=== PATIENT | male | born 1935 | race Caucasian/White ===

== ENCOUNTER 2017-01-09 15:26 | Inpatient (IN) ==
[2017-01-09] MEDS ORDERED: D5% in Water 1,000 ML IV PRN (18:11)
[2017-01-09] MEDS ORDERED: Dextrose Gel 15 GM PO PRN ×2 (18:11)
[2017-01-09] MEDS ORDERED: *HR* Dextrose 50 % in Water (Syg) 50 ML SYRINGE IVP PRN (18:11)
[2017-01-09 20:07] LABS: Basophils % 0.4 %; Eosinophils # 0.2 K/mcL (0.0-0.6); Eosinophils % 2.9 %; Hematocrit 30.6 % (37.5-50.1); Hemoglobin 10.5 g/dL (12.9-16.9); Immature Granulocytes % 3.3 % (0-4); Lymphocytes # 1.1 K/mcL (0.6-4.6); Lymphocytes % 12.9 %; Mean Corpuscular HGB Conc 34.3 g/dL (31.6-35.5); Mean Corpuscular Hemoglobin 31.5 pg (28.0-33.3); Mean Corpuscular Volume 91.9 fL (83.0-100.0); Mean Platelet Volume 11.1 fL (9.4-12.4); Monocytes % 11.6 %; Neutrophils # 5.6 K/mcL (1.6-8.9); Platelet Count 128 K/mcL (140-400); Red Blood Count 3.33 M/mcL (4.19-5.50); Red Cell Distribution Width 18.2 % (11.5-14.5); Segmented Neutrophils % 68.9 %
[2017-01-09] MEDS: MetroNIDAZOLE 500 MG TABLET PO SCH (20:50)
[2017-01-09] MEDS: Insulin LISPRO 300 UNITS/3 ML VIAL SQ SCH (21:00)
[2017-01-10] MEDS ORDERED: Levothyroxine 25 MCG TABLET PO SCH (08:00)
[2017-01-10] MEDS: Cholecalciferol (D-3) 1,000 UNIT TABLET PO SCH (08:48)
[2017-01-10] MEDS: MetroNIDAZOLE 500 MG TABLET PO SCH ×3 (08:48→21:40)
[2017-01-10] MEDS: Folic Acid 1 MG TABLET PO SCH (08:48)
[2017-01-10] MEDS: *HR* GlipiZIDE 5 MG TABLET PO SCH (08:53)
[2017-01-10] MEDS: Insulin LISPRO 300 UNITS/3 ML VIAL SQ SCH ×4 (08:55→21:41)
--- NOTE | 2017-01-10 11:52 | Internal Med History&Physical ---
Date of Encounter: 01/10/17 Time of Encounter: 11:15 Assessment and Plan (1) Cholecystitis, acute with cholelithiasis Current visit: No Status: Acute Status post laparoscopic cholecystectomy with choledocholithiasis removal by ERCP. Follow-up as per surgeon. Qualifiers: Cholelithiasis location: gallbladder Biliary obstruction: without biliary obstruction Qualified Code(s): K80.00 - Calculus of gallbladder with acute cholecystitis without obstruction (2) Systolic CHF Current visit: No Status: Acute Renal function has improved. We will restart diuretics and add Imdur and Lanoxin. Qualifiers: Congestive heart failure chronicity: unspecified congestive heart failure chronicity Qualified Code(s): I50.20 - Unspecified systolic (congestive) heart failure (3) Hypophosphatemia Current visit: Yes Status: Acute Phosphorus level was 1.9 on 01/08/2017. We will recheck in a.m. (4) Anemia Current visit: No Status: Chronic Suspect due to chronic kidney disease. We will order anemia testing in a.m. Qualifiers: Anemia type: unspecified type Qualified Code(s): D64.9 - Anemia, unspecified (5) Hypothyroidism Current visit: No Status: Chronic TSH was slightly elevated at 5.16 through 01/01/2017. We will increase Synthroid dose. Qualifiers: Hypothyroidism type: unspecified Qualified Code(s): E03.9 - Hypothyroidism , unspecified (6) Hypomagnesemia Current visit: No Status: Resolved Magnesium level had normalized to 1.6 on January 2017. We will continue to monitor periodically. (7) Chronic kidney disease, stage IV (severe) Current visit: No Status: Acute Estimated GFR had risen to 29 on 01/09/2017 with creatinine 2.17. Continue to monitor renal indices. (8) Hypertension Current visit: No Status: Acute Blood pressure is acceptable without antihypertensive medications. Qualifiers: Hypertension type: essential hypertension Qualified Code(s): I10 - Essential (primary) hypertension (9) DM type 2 (diabetes mellitus, type 2) Current visit: Yes Status: Chronic Hemoglobin A1c was 5.6% on 11/21/2016. Continue Glucotrol and do Accu-Cheks with SSI. Qualifiers: Diabetes mellitus complication status: with kidney complications Diabetes mellitus complication detail: with chronic kidney disease Diabetes mellitus station mechanic helper insulin use: without station mechanic helper use Chronic kidney disease stage: stage 4 (severe) Qualified Code(s): E11.22 - Type 2 diabetes mellitus with diabetic chronic kidney disease; N18.4 - Chronic kidney disease, stage 4 (severe ) Internal Medicine - H&P: HPI Chief complaint: Postop laparoscopic cholecystectomy, chronic kidney disease Admitted From: Hospital to Hospital Transfer Plans for Post Hospital Care: Home History of present illness: Mr. Martin is a 81 year old male who was hospitalized at [facility] January 02- for acute cholecystitis requiring cholecystectomy. The laparoscopic procedure was difficult and CBD stones were found requiring ERCP 01/05/2017 with biliary sphincterotomy and balloon extraction. A biliary stent was placed in the CBD. MILKA drain was placed. He was discharged after further stabilization to [facility] bed for rehabilitation therapy prior to returning home. He denies disorders of his liver or exocrine pancreas otherwise. Past Med Surg Social Fam HX - Past Medical History Medical history: coronary artery disease, CVA, diabetes, GERD, glaucoma, hyperlipidemia, hypertension, renal disease Psychiatric history: no psych history - Past Surgical History Surgical History: carotid endarterectomy, coronary bypass (CABG), pacemaker/AICD , other - Social History Smoking Status: Former smoker Smokeless Tobacco Status: No Alcohol use: none Drug use: none - Family History Father Hx Family Endocrine Disorder: Yes (diabetes) Mother Hx Family Cancer: Yes (brain) Internal Medicine - H&P: Meds Clopidogrel [Plavix] 75 mg PO DAILY 01/01/17 [History] GlipiZIDE [Glucotrol] 2.5 mg PO 3XW 01/01/17 [History] Levothyroxine [Synthroid] 25 mcg PO DAILY 01/01/17 [History] Omeprazole 20 mg PO DAILY 01/01/17 [History] Potassium Chloride [Klor-Con 10] 10 meq PO BID 01/01/17 [History] Simvastatin [Zocor] 20 mg PO DAILY 01/01/17 [History] Tamsulosin HCl [Flomax] 0.4 mg PO DAILY 01/01/17 [History] Cholecalciferol (Vitamin D3) [Vitamin D3] 5,000 unit PO DAILY 01/02/17 [History] Folic Acid 1 mg PO DAILY 01/02/17 [History] Amoxicillin/Clavulanate [Augmentin] 875 mg PO BIDWM #9 tablet 01/08/17 [Rx] MetroNIDAZOLE [Flagyl] 500 mg PO TID #13 tablet 01/08/17 [Rx] Allergies No Known Allergies Allergy (Verified 01/02/17 08:41) All Systems PM: A 10-system review of systems was performed and is negative for pertinent findings except as documented above in the HPI. Review of systems: General: He states his weight has fluctuated depending on fluid retention Cardiovascular: He has history of hypertension. He has known ASHD status post 2 vessel CABG approximately 2009. He has chronic systolic congestive heart failure with echocardiogram 07/26/2016 showing LVEF of 30-35% with mild concentric LVH. The interventricular septum and posterior wall thickness measurements were 1.42 and 1.01 cm respectively. There was left atrial enlargement 4.3 cm. He has had ICD- pacemaker placed with history of sick sinus syndrome. Has right carotid stenosis. He denies DVT or pulmonary embolus. He had a Regadenoson EST 06/13/2014 which showed perfusion imaging negative for ischemia. Respiratory: He smoked from age [age] but denies chronic lung disease. GI: Per history of present illness : He has chronic kidney disease and follows with a infrastructure manager. He has BPH. Neurologic: He claims he had a mini stroke at the time of his CABG surgery. He had brief vision loss in his left visual field but states he has had recovery. He denies seizures. Endocrine: He was diagnosed with DM 2 approximately 2000. He has hypothyroidism denies hyperlipidemia Hematology/oncology: He has history of anemia but denies internal malignancies. Psychiatric: He denies anxiety depression or other mental health issues Musculoskeletal: He denies significant arthritis gout or other bone joint or muscle disorders. - Constitutional Vitals: Temp Pulse Resp BP Pulse Ox 97.9 F 75 16 112/64 97 01/10/17 07:41 01/10/17 07:41 01/10/17 07:41 01/10/17 07:41 01/10/17 07:41 Exam: Gen.: He is a well-developed well-nourished male sitting in a chair who appears in no acute distress at present time. HEENT: Head is atraumatic and normocephalic. Eyes: EOMI. There is no scleral icterus. Mouth: Mucosa is moist. Neck: Supple and nontender. There is no thyromegaly or adenopathy noted Line heart: Regular with occasional ectopic beat. No murmurs are heard Lungs: No wheezes or crackles are heard Abdomen: He has multiple abdominal wall surgical incisions consistent with recent laparoscopic cholecystectomy. No wound infection is obvious. The abdomen is soft and nontender. Extremities: He has 3-4+ edema of his dorsum of the feet and lower anterior shins bilaterally. Dorsalis pedis and posterior tibial pulses are nonpalpable because of the edema. His feet are warm to touch. He has pigmentation changes with with multiple bruises of various stages on his arms. 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 Neurologic: Mental status: He is talkative and a fair to good historian. Cranial nerves: Smile is symmetric. Forehead wrinkles bilaterally. Tongue protrudes midline. EOMI. Motor: There is no pronator drift. Cerebellar: Finger to nose is intact bilaterally. Skin: Warm and dry Internal Med - H&P Results - Labs CBC & Chem 7: 01/09/17 19:00 Labs: Short CBC 01/09/17 Range/Units 19:00 WBC 8.2 (4.3-11.1) K/mcL Hgb 10.5 L (12.9-16.9) g/dL Hct 30.6 L (37.5-50.1) % Plt Count 128 L (140-400) K/mcL Neutrophils # 5.6 (1.6-8.9) K/mcL
[2017-01-10] MEDS: *HR* Digoxin 0.125 MG TABLET PO SCH (15:59)
[2017-01-10] MEDS: Bumetanide 1 MG TABLET PO SCH (15:59)
[2017-01-10] MEDS: Isosorbide MONOnitrate (24 HR) 30 MG TAB.ER.24H PO SCH (16:00)
[2017-01-10] MEDS: *HR* Heparin 5,000 UNIT/ML VIAL SQ SCH ×2 (17:12→21:38)
[2017-01-10] MEDS ORDERED: Oseltamivir Phosphate 30 MG CAPSULE PO SCH ×2 (21:00)
[2017-01-11 06:28] LABS: Basophils % 0.3 %; Eosinophils # 0.3 K/mcL (0.0-0.6); Eosinophils % 3.3 %; Hematocrit 29.8 % (37.5-50.1); Hemoglobin 10.2 g/dL (12.9-16.9); Immature Granulocytes % 1.8 % (0-4); Lymphocytes # 0.8 K/mcL (0.6-4.6); Lymphocytes % 10.9 %; Mean Corpuscular HGB Conc 34.2 g/dL (31.6-35.5); Mean Corpuscular Hemoglobin 31.7 pg (28.0-33.3); Mean Corpuscular Volume 92.5 fL (83.0-100.0); Mean Platelet Volume 11.2 fL (9.4-12.4); Monocytes # 0.7 K/mcL (0.0-1.3); Monocytes % 9.6 %; Neutrophils # 5.7 K/mcL (1.6-8.9); Platelet Count 145 K/mcL (140-400); Red Blood Count 3.22 M/mcL (4.19-5.50); Red Cell Distribution Width 18.7 % (11.5-14.5); Segmented Neutrophils % 74.1 %
[2017-01-11 06:44] LABS: Calcium 8.4 mg/dL (8.6-10.8); Potassium 4.1 mEq/L (3.5-4.5)
[2017-01-11] MEDS: Levothyroxine 25 MCG TABLET PO SCH (07:31)
[2017-01-11] MEDS: *HR* Heparin 5,000 UNIT/ML VIAL SQ SCH ×2 (07:31→20:41)
[2017-01-11] MEDS: Isosorbide MONOnitrate (24 HR) 30 MG TAB.ER.24H PO SCH (09:29)
[2017-01-11] MEDS: Folic Acid 1 MG TABLET PO SCH (09:29)
[2017-01-11] MEDS: Cholecalciferol (D-3) 1,000 UNIT TABLET PO SCH (09:29)
[2017-01-11] MEDS: MetroNIDAZOLE 500 MG TABLET PO SCH ×3 (09:29→20:42)
[2017-01-11] MEDS: *HR* Digoxin 0.125 MG TABLET PO SCH (09:29)
[2017-01-11] MEDS: Bumetanide 1 MG TABLET PO SCH (09:29)
[2017-01-11] MEDS: Insulin LISPRO 300 UNITS/3 ML VIAL SQ SCH ×4 (10:30→20:42)
[2017-01-11 16:08] LABS: Folate 15.7 ng/mL (7.0-31.4)
[2017-01-12 05:17] LABS: Basophils % 0.5 %; Eosinophils # 0.2 K/mcL (0.0-0.6); Eosinophils % 3.5 %; Hematocrit 30.5 % (37.5-50.1); Hemoglobin 10.4 g/dL (12.9-16.9); Lymphocytes # 0.8 K/mcL (0.6-4.6); Lymphocytes % 12.8 %; Mean Corpuscular HGB Conc 34.1 g/dL (31.6-35.5); Mean Corpuscular Hemoglobin 31.5 pg (28.0-33.3); Mean Corpuscular Volume 92.4 fL (83.0-100.0); Mean Platelet Volume 11.2 fL (9.4-12.4); Monocytes # 0.6 K/mcL (0.0-1.3); Neutrophils # 4.7 K/mcL (1.6-8.9); Platelet Count 145 K/mcL (140-400); Red Cell Distribution Width 18.9 % (11.5-14.5); Segmented Neutrophils % 72.2 %
[2017-01-12] MEDS: Levothyroxine 25 MCG TABLET PO SCH (06:56)
[2017-01-12] MEDS: *HR* Heparin 5,000 UNIT/ML VIAL SQ SCH ×2 (06:56→18:36)
[2017-01-12] MEDS: MetroNIDAZOLE 500 MG TABLET PO SCH ×3 (08:39→20:52)
[2017-01-12] MEDS: Isosorbide MONOnitrate (24 HR) 30 MG TAB.ER.24H PO SCH (08:40)
[2017-01-12] MEDS: Folic Acid 1 MG TABLET PO SCH (08:40)
[2017-01-12] MEDS: Bumetanide 1 MG TABLET PO SCH (08:40)
[2017-01-12] MEDS: *HR* Digoxin 0.125 MG TABLET PO SCH (08:40)
[2017-01-12] MEDS: Cholecalciferol (D-3) 1,000 UNIT TABLET PO SCH (08:40)
[2017-01-12] MEDS: Insulin LISPRO 300 UNITS/3 ML VIAL SQ SCH ×4 (08:42→20:54)
--- NOTE | 2017-01-12 14:47 | Internal Med Progress Note ---
Date of Encounter: 01/12/17 Time of Encounter: 14:35 - Assessment and plan (1) Cholecystitis, acute with cholelithiasis Current Visit: No Status: Acute Assessment and plan: January 12. Status post laparoscopic cholecystectomy with choledocholithiasis removal by ERCP. Follow-up as per surgeon. Qualifiers: Cholelithiasis location: gallbladder Biliary obstruction: without biliary obstruction Qualified Code(s): K80.00 - Calculus of gallbladder with acute cholecystitis without obstruction (2) Systolic CHF Current Visit: No Status: Acute Assessment and plan: January 12. Continue Bumex, Imdur, and Lanoxin Qualifiers: Congestive heart failure chronicity: unspecified congestive heart failure chronicity Qualified Code(s): I50.20 - Unspecified systolic (congestive) heart failure (3) Hypophosphatemia Current Visit: Yes Status: Acute Assessment and plan: January 12. We will recheck labs in a.m. (4) Anemia Current Visit: No Status: Chronic Assessment and plan: January 12. Anemia testing 01/11/2017 showed no factor deficiency. Qualifiers: Anemia type: unspecified type Qualified Code(s): D64.9 - Anemia, unspecified (5) Hypothyroidism Current Visit: No Status: Chronic Assessment and plan: January 12. TSH was slightly elevated at 5.16 on 01/01/2017. Continue higher dose Synthroid Qualifiers: Hypothyroidism type: unspecified Qualified Code(s): E03.9 - Hypothyroidism , unspecified (6) Hypomagnesemia Current Visit: No Status: Acute Assessment and plan: January 12. We will recheck labs in a.m. (7) Chronic kidney disease, stage IV (severe) Current Visit: No Status: Acute Assessment and plan: January 12. Continue to monitor renal indices. (8) Hypertension Current Visit: No Status: Acute Assessment and plan: January 12. Continue to observe off medication Qualifiers: Hypertension type: essential hypertension Qualified Code(s): I10 - Essential (primary) hypertension (9) DM type 2 (diabetes mellitus, type 2) Current Visit: Yes Status: Chronic Qualifiers: Diabetes mellitus complication status: with kidney complications Diabetes mellitus complication detail: with chronic kidney disease Diabetes mellitus film printer insulin use: without film printer use Chronic kidney disease stage: stage 4 (severe) Qualified Code(s): E11.22 - Type 2 diabetes mellitus with diabetic chronic kidney disease; N18.4 - Chronic kidney disease, stage 4 (severe ) - Subjective Interval history: January 12. He has no new complaints and states he is feeling better. - Constitutional Vitals: Temp Pulse Resp BP Pulse Ox 97.8 F 73 16 123/69 98 01/12/17 06:35 01/12/17 06:35 01/12/17 06:35 01/12/17 06:35 01/12/17 09:00 Exam: He is resting comfortably in bed. His heart is regular with occasional ectopic beat. Lungs are clear anteriorly. Extremities show slightly decrease in the edema. Reviewed his medications and lab results. Internal Medicine: Result - Labs CBC & Chem 7: 01/12/17 04:10 01/11/17 05:43 Labs: Short CBC 01/12/17 Range/Units 04:10 WBC 6.6 (4.3-11.1) K/mcL Hgb 10.4 L (12.9-16.9) g/dL Hct 30.5 L (37.5-50.1) % Plt Count 145 (140-400) K/mcL Neutrophils # 4.7 (1.6-8.9) K/mcL BMP 01/11/17 05:43 Sodium 137 Potassium 4.1 Chloride 108 Carbon Dioxide 21 BUN 35 H Creatinine 2.05 H Glucose 118 H Calcium 8.4 L - VTE Documentation of Mechanical Device: Graduated compression elastic hosiery Consult Discharge Plan - Plan Referrals: NO,PCP [Primary Care Provider] - 1 week
[2017-01-13 05:41] LABS: Basophils % 0.2 %; Eosinophils # 0.1 K/mcL (0.0-0.6); Eosinophils % 2.4 %; Hematocrit 28.8 % (37.5-50.1); Hemoglobin 9.8 g/dL (12.9-16.9); Immature Granulocytes % 1.7 % (0-4); Lymphocytes # 0.7 K/mcL (0.6-4.6); Lymphocytes % 12.1 %; Mean Corpuscular Hemoglobin 31.4 pg (28.0-33.3); Mean Corpuscular Volume 92.3 fL (83.0-100.0); Mean Platelet Volume 11.1 fL (9.4-12.4); Monocytes # 0.5 K/mcL (0.0-1.3); Monocytes % 9.2 %; Neutrophils # 4.4 K/mcL (1.6-8.9); Platelet Count 142 K/mcL (140-400); Red Blood Count 3.12 M/mcL (4.19-5.50); Red Cell Distribution Width 19.7 % (11.5-14.5); Segmented Neutrophils % 74.4 %
[2017-01-13] MEDS: Levothyroxine 25 MCG TABLET PO SCH (05:45)
[2017-01-13] MEDS: *HR* Heparin 5,000 UNIT/ML VIAL SQ SCH ×2 (05:46→18:59)
[2017-01-13 06:05] LABS: Calcium 8.5 mg/dL (8.6-10.8); Magnesium 1.2 mg/dL (1.6-2.6); Phosphorous 2.5 mg/dL (2.3-4.7); Potassium 4.3 mEq/L (3.5-4.5)
[2017-01-13] MEDS: Cholecalciferol (D-3) 1,000 UNIT TABLET PO SCH (08:00)
[2017-01-13] MEDS: Isosorbide MONOnitrate (24 HR) 30 MG TAB.ER.24H PO SCH (08:00)
[2017-01-13] MEDS: MetroNIDAZOLE 500 MG TABLET PO SCH ×3 (08:00→21:10)
[2017-01-13] MEDS: *HR* Digoxin 0.125 MG TABLET PO SCH (08:01)
[2017-01-13] MEDS: Insulin LISPRO 300 UNITS/3 ML VIAL SQ SCH ×4 (08:01→21:12)
[2017-01-13] MEDS: Bumetanide 1 MG TABLET PO SCH (08:01)
[2017-01-13] MEDS: *HR* GlipiZIDE 5 MG TABLET PO SCH (12:46)
[2017-01-14] MEDS: *HR* Heparin 5,000 UNIT/ML VIAL SQ SCH ×2 (05:43→20:48)
[2017-01-14] MEDS: Levothyroxine 25 MCG TABLET PO SCH (05:43)
[2017-01-14] MEDS: Bumetanide 1 MG TABLET PO SCH (08:43)
[2017-01-14] MEDS: Isosorbide MONOnitrate (24 HR) 30 MG TAB.ER.24H PO SCH (08:45)
[2017-01-14] MEDS: Cholecalciferol (D-3) 1,000 UNIT TABLET PO SCH (08:45)
[2017-01-14] MEDS: *HR* Digoxin 0.125 MG TABLET PO SCH (08:45)
[2017-01-14] MEDS: MetroNIDAZOLE 500 MG TABLET PO SCH ×3 (08:46→20:45)
[2017-01-14] MEDS: Insulin LISPRO 300 UNITS/3 ML VIAL SQ SCH ×4 (08:46→20:45)
--- NOTE | 2017-01-14 11:34 | Internal Med Progress Note ---
Date of Encounter: 01/14/17 Time of Encounter: 11:25 - Assessment and plan (1) Cholecystitis, acute with cholelithiasis Current Visit: No Status: Acute Assessment and plan: January 12. Status post laparoscopic cholecystectomy with choledocholithiasis removal by ERCP. Follow-up as per surgeon. January 14. He denies abdominal discomfort. Continue present treatment Qualifiers: Cholelithiasis location: gallbladder Biliary obstruction: without biliary obstruction Qualified Code(s): K80.00 - Calculus of gallbladder with acute cholecystitis without obstruction (2) Systolic CHF Current Visit: No Status: Acute Assessment and plan: January 12. Continue Bumex, Imdur, and Lanoxin January 14. BNP peptide has improved to 1227. Increase Bumex and continue to monitor labs. Qualifiers: Congestive heart failure chronicity: unspecified congestive heart failure chronicity Qualified Code(s): I50.20 - Unspecified systolic (congestive) heart failure (3) Hypophosphatemia Current Visit: Yes Status: Acute Assessment and plan: January 12. We will recheck labs in a.m. January 14. Phosphorus level was normal at 2.5 yesterday. (4) Anemia Current Visit: No Status: Chronic Assessment and plan: January 12. Anemia testing 01/11/2017 showed no factor deficiency. January 14. Hemoglobin decreased slightly to 9.8 yesterday. Qualifiers: Anemia type: unspecified type Qualified Code(s): D64.9 - Anemia, unspecified (5) Hypothyroidism Current Visit: No Status: Chronic Assessment and plan: January 12. TSH was slightly elevated at 5.16 on 01/01/2017. Continue higher dose Synthroid Qualifiers: Hypothyroidism type: unspecified Qualified Code(s): E03.9 - Hypothyroidism , unspecified (6) Hypomagnesemia Current Visit: No Status: Acute Assessment and plan: January 12. We will recheck labs in a.m. January 14. Magnesium level returned low at 1.2. We will start magnesium oxide. (7) Chronic kidney disease, stage IV (severe) Current Visit: No Status: Acute Assessment and plan: January 12. Continue to monitor renal indices. (8) Hypertension Current Visit: No Status: Acute Assessment and plan: January 12. Continue to observe off medication Qualifiers: Hypertension type: essential hypertension Qualified Code(s): I10 - Essential (primary) hypertension (9) DM type 2 (diabetes mellitus, type 2) Current Visit: Yes Status: Chronic Assessment and plan: January 14. Continue Glucotrol and monitor Accu-Cheks Qualifiers: Diabetes mellitus complication status: with kidney complications Diabetes mellitus complication detail: with chronic kidney disease Diabetes mellitus termite control technician insulin use: without longterm use Chronic kidney disease stage: stage 4 (severe) Qualified Code(s): E11.22 - Type 2 diabetes mellitus with diabetic chronic kidney disease; N18.4 - Chronic kidney disease, stage 4 (severe ) - Subjective Interval history: January 12. He has no new complaints and states he is feeling better. January 14. He has no new complaints and feels improved. He thinks he is making good progress in therapy - Constitutional Vitals: Temp Pulse Resp BP Pulse Ox 97.4 F L 73 18 118/66 97 01/14/17 06:31 01/14/17 10:51 01/14/17 10:51 01/14/17 10:51 01/14/17 10:51 Exam: He is sitting in a chair resting comfortably. His heart is irregular. Lungs are clear. Extremities show 2-3+ edema in his medications and lab results. Internal Medicine: Result - Labs CBC & Chem 7: 01/13/17 04:33 01/13/17 04:33 - VTE Documentation of Mechanical Device: Graduated compression elastic hosiery Consult Discharge Plan - Plan Referrals: NO,PCP [Primary Care Provider] - 1 week
[2017-01-14] MEDS: Magnesium Oxide 400 MG TABLET PO SCH ×2 (12:51→20:45)
[2017-01-15 05:32] LABS: Basophils % 0.2 %; Eosinophils # 0.1 K/mcL (0.0-0.6); Eosinophils % 2.4 %; Hematocrit 29.1 % (37.5-50.1); Immature Granulocytes % 1.2 % (0-4); Lymphocytes # 0.9 K/mcL (0.6-4.6); Lymphocytes % 14.7 %; Mean Corpuscular HGB Conc 34.4 g/dL (31.6-35.5); Mean Corpuscular Hemoglobin 31.8 pg (28.0-33.3); Mean Corpuscular Volume 92.7 fL (83.0-100.0); Mean Platelet Volume 10.8 fL (9.4-12.4); Monocytes # 0.6 K/mcL (0.0-1.3); Monocytes % 9.6 %; Neutrophils # 4.3 K/mcL (1.6-8.9); Platelet Count 147 K/mcL (140-400); Red Blood Count 3.14 M/mcL (4.19-5.50); Red Cell Distribution Width 20.4 % (11.5-14.5); Segmented Neutrophils % 71.9 %
[2017-01-15 05:47] LABS: Calcium 8.6 mg/dL (8.6-10.8); Potassium 3.9 mEq/L (3.5-4.5)
[2017-01-15] MEDS: *HR* Heparin 5,000 UNIT/ML VIAL SQ SCH ×2 (06:37→20:17)
[2017-01-15] MEDS: Levothyroxine 25 MCG TABLET PO SCH (06:37)
[2017-01-15] MEDS: Insulin LISPRO 300 UNITS/3 ML VIAL SQ SCH ×4 (07:44→20:49)
[2017-01-15] MEDS: Cholecalciferol (D-3) 1,000 UNIT TABLET PO SCH (08:29)
[2017-01-15] MEDS: *HR* Digoxin 0.125 MG TABLET PO SCH (08:29)
[2017-01-15] MEDS: Isosorbide MONOnitrate (24 HR) 30 MG TAB.ER.24H PO SCH (08:29)
[2017-01-15] MEDS: Magnesium Oxide 400 MG TABLET PO SCH ×2 (08:29→20:42)
[2017-01-15] MEDS: MetroNIDAZOLE 500 MG TABLET PO SCH ×3 (08:29→20:42)
[2017-01-15] MEDS: Bumetanide 1 MG TABLET PO SCH (08:30)
[2017-01-15] MEDS: *HR* GlipiZIDE 5 MG TABLET PO SCH (08:32)
[2017-01-16] MEDS: Levothyroxine 25 MCG TABLET PO SCH (06:21)
[2017-01-16] MEDS: *HR* Heparin 5,000 UNIT/ML VIAL SQ SCH ×2 (06:22→21:06)
[2017-01-16 08:18] LABS: Potassium 3.9 mEq/L (3.5-4.5)
[2017-01-16] MEDS: Insulin LISPRO 300 UNITS/3 ML VIAL SQ SCH ×4 (08:40→21:10)
[2017-01-16] MEDS: Isosorbide MONOnitrate (24 HR) 30 MG TAB.ER.24H PO SCH (08:46)
[2017-01-16] MEDS: Cholecalciferol (D-3) 1,000 UNIT TABLET PO SCH (08:46)
[2017-01-16] MEDS: Magnesium Oxide 400 MG TABLET PO SCH ×3 (08:46→21:06)
[2017-01-16] MEDS: *HR* Digoxin 0.125 MG TABLET PO SCH (08:46)
[2017-01-16] MEDS: MetroNIDAZOLE 500 MG TABLET PO SCH ×3 (08:46→21:05)
[2017-01-16] MEDS: Bumetanide 1 MG TABLET PO SCH (11:53)
[2017-01-17] MEDS: *HR* Heparin 5,000 UNIT/ML VIAL SQ SCH (06:44)
[2017-01-17 07:20] VITALS: BP 110/65
[2017-01-17] MEDS: Levothyroxine 25 MCG TABLET PO SCH (07:58)
[2017-01-17] MEDS: Bumetanide 1 MG TABLET PO SCH (09:40)
[2017-01-17] MEDS: Cholecalciferol (D-3) 1,000 UNIT TABLET PO SCH (09:40)
[2017-01-17] MEDS: MetroNIDAZOLE 500 MG TABLET PO SCH (09:41)
[2017-01-17] MEDS: Isosorbide MONOnitrate (24 HR) 30 MG TAB.ER.24H PO SCH (09:41)
[2017-01-17] MEDS: Magnesium Oxide 400 MG TABLET PO SCH (09:42)
[2017-01-17] MEDS: *HR* Digoxin 0.125 MG TABLET PO SCH (09:42)
[2017-01-17] MEDS: Insulin LISPRO 300 UNITS/3 ML VIAL SQ SCH (09:45)
--- NOTE | 2017-01-17 09:48 | Discharge Summary ---
Date of Encounter: 01/17/17 Time of Encounter: 09:30 - Discharge Diagnosis (1) Cholecystitis, acute with cholelithiasis Priority: Primary Status: Acute Qualifiers: Cholelithiasis location: gallbladder Biliary obstruction: without biliary obstruction Qualified Code(s): K80.00 - Calculus of gallbladder with acute cholecystitis without obstruction (2) Systolic CHF Priority: Secondary Status: Chronic Qualifiers: Congestive heart failure chronicity: unspecified congestive heart failure chronicity Qualified Code(s): I50.20 - Unspecified systolic (congestive) heart failure (3) Hypophosphatemia Priority: Secondary Status: Resolved (4) Anemia Priority: Secondary Status: Chronic Qualifiers: Anemia type: unspecified type Qualified Code(s): D64.9 - Anemia, unspecified (5) Hypothyroidism Priority: Secondary Status: Chronic Qualifiers: Hypothyroidism type: unspecified Qualified Code(s): E03.9 - Hypothyroidism , unspecified (6) Hypomagnesemia Priority: Secondary Status: Acute (7) Chronic kidney disease, stage IV (severe) Priority: Secondary Status: Chronic (8) Hypertension Priority: Secondary Status: Chronic Qualifiers: Hypertension type: essential hypertension Qualified Code(s): I10 - Essential (primary) hypertension (9) DM type 2 (diabetes mellitus, type 2) Priority: Secondary Status: Chronic Qualifiers: Diabetes mellitus complication status: with kidney complications Diabetes mellitus complication detail: with chronic kidney disease Diabetes mellitus terminal operations manager insulin use: without shelter use Chronic kidney disease stage: stage 4 (severe) Qualified Code(s): E11.22 - Type 2 diabetes mellitus with diabetic chronic kidney disease; N18.4 - Chronic kidney disease, stage 4 (severe ) - Discharge Medications Prescriptions: Bumetanide [Bumex] 2 mg PO DAILY #60 tablet Digoxin [Lanoxin] 0.125 mg PO DAILY #30 tablet Isosorbide MONOnitrate (24 HR) [Imdur] 30 mg PO DAILY #30 tab.er.24h Magnesium Oxide [Mag-Ox] 400 mg PO DAILY #7 tablet Home Medications: Clopidogrel [Plavix] 75 mg PO DAILY 01/01/17 [History] GlipiZIDE [Glucotrol] 2.5 mg PO 3XW 01/01/17 [History] Omeprazole 20 mg PO DAILY 01/01/17 [History] Potassium Chloride [Klor-Con 10] 10 meq PO BID 01/01/17 [History] Simvastatin [Zocor] 20 mg PO DAILY 01/01/17 [History] Tamsulosin HCl [Flomax] 0.4 mg PO DAILY 01/01/17 [History] Folic Acid 1 mg PO DAILY 01/02/17 [History] Metoprolol XL (24 HR) Succ [Toprol Xl] 25 mg PO DAILY 01/15/17 [History] Bumetanide [Bumex] 2 mg PO DAILY #60 tablet 01/17/17 [Rx] Cholecalciferol (D-3) [Vitamin D] 1,000 unit PO DAILY tablet 01/17/17 [Rx] Digoxin [Lanoxin] 0.125 mg PO DAILY #30 tablet 01/17/17 [Rx] Isosorbide MONOnitrate (24 HR) [Imdur] 30 mg PO DAILY #30 tab.er.24h 01/17/17 [ Rx] Levothyroxine [Synthroid] 50 mcg PO DAILY #0 01/17/17 [Rx] Magnesium Oxide [Mag-Ox] 400 mg PO DAILY #7 tablet 01/17/17 [Rx] Allergies/Adverse Reactions: Allergies No Known Allergies Allergy (Verified 01/02/17 08:41) Date of admission: 01/09/17 16:00 Primary care physician: PCP NO Consults: 01/09/17 16:38 Consult to Occupational Therapy [CONS] Routine Comment: evaluate,develop, and implement plan of care Consult to Physical Therapy [CONS] Routine Comment: evaluate, develop, and implement plan of care Consult to Lapper [CONS] Routine Reason for SW Consult: discharge planning - Patient Status Disposition: Home Health Service Overall status at discharge: patient is progressing back to baseline - Discharge Instructions Follow Up With: NO,PCP [Primary Care Provider] - 1 week - Diet and Activity Activity: resume usual activities as tolerated Diet: advance to your usual diet Hospital course: Mr. Martin is a 81 year old male who was hospitalized at [facility] January 02- for acute cholecystitis requiring cholecystectomy. The laparoscopic procedure was difficult and CBD stones were found requiring ERCP 01/05/2017 with biliary sphincterotomy and balloon extraction. A biliary stent was placed in the CBD. MILKA drain was placed. He was discharged after further stabilization to [facility] bed for rehabilitation therapy prior to returning home. Initial orders were written by the discharging physicians at [facility]. I saw him on January 10 and performed the swing bed history and physical. He had physical therapy and occupational therapy evaluation with ongoing interventions. He had a follow-up visit with [facility] surgery department on January 16 and received a satisfactory report. He was stable for discharge home on January 17. I restarted his diuretics on admission but changed from Lasix to Bumex. Lanoxin and isosorbide were added. His BNP peptide improved to 1171 on January 15. He will continue on Bumex, isosorbide, Lanoxin, Toprol-XL and potassium at discharge. I held lisinopril because of borderline hypotension and azotemia. PCP can determine if this should be restarted. TSH was slightly elevated at 5.16 on 01/01/2017. I increased his Synthroid dose to 50 g daily and he will continue this at discharge. Anemia testing on 01/11/2017 showed no factor deficiency. Magnesium level returned low at 1.2. He was given magnesium oxide and is level was normal at 2.0 01/15/2017. He will continue a low dose of magnesium oxide at discharge for 7 additional days. His PCP can monitor this as outpatient. There were no other new problems and on January 17 he was stable for discharge home. He will follow his PCP within one week and with the surgeons as directed. - Time Spent with Patient Total time spent providing and/or coordinating discharge services: - Constitutional Vitals: Temp Pulse Resp BP Pulse Ox 98.1 F 70 16 110/65 96 01/17/17 07:16 01/17/17 07:16 01/17/17 07:16 01/17/17 07:16 01/17/17 07:16 - VTE Documentation of Mechanical Device: Graduated compression elastic hosiery
[2017-01-17] MEDS: *HR* GlipiZIDE 5 MG TABLET PO SCH (09:56)
--- NOTE | 2017-01-17 09:57 | Physician Discharge Referral ---
Home Health/Hosp Referral Info Transfer to: Home Health Attending Provider: Stanislaw Provider in Charge Post Discharge: PCP - Diagnosis (1) Cholecystitis, acute with cholelithiasis Priority: Primary Status: Acute (2) Systolic CHF Priority: Secondary Status: Chronic (3) Hypophosphatemia Priority: Secondary Status: Resolved (4) Anemia Priority: Secondary Status: Chronic (5) Hypothyroidism Priority: Secondary Status: Chronic (6) Hypomagnesemia Priority: Secondary Status: Acute (7) Chronic kidney disease, stage IV (severe) Priority: Secondary Status: Chronic (8) Hypertension Priority: Secondary Status: Chronic (9) DM type 2 (diabetes mellitus, type 2) Priority: Secondary Status: Chronic - Respiratory Orders Smoking Cessation: Smoking cessation has been advised. For more information, call the [place] Tobacco Quit Line at 2-664-LCRR-NOW. - Diet/Nutrition Diet/Nutrition Orders: No Added Salt (EMELI), No Concentrated Sweets - Activity Activity Orders: Walker - Services Needed Following services are medically necessary services: Nursing, Home Health Aide, Physical Therapy, Occupational Therapy - Transfer Medications Prescriptions: Bumetanide [Bumex] 2 mg PO DAILY #60 tablet Digoxin [Lanoxin] 0.125 mg PO DAILY #30 tablet Isosorbide MONOnitrate (24 HR) [Imdur] 30 mg PO DAILY #30 tab.er.24h Magnesium Oxide [Mag-Ox] 400 mg PO DAILY #7 tablet Home Medications: Clopidogrel [Plavix] 75 mg PO DAILY 01/01/17 [History] GlipiZIDE [Glucotrol] 2.5 mg PO 3XW 01/01/17 [History] Omeprazole 20 mg PO DAILY 01/01/17 [History] Potassium Chloride [Klor-Con 10] 10 meq PO BID 01/01/17 [History] Simvastatin [Zocor] 20 mg PO DAILY 01/01/17 [History] Tamsulosin HCl [Flomax] 0.4 mg PO DAILY 01/01/17 [History] Folic Acid 1 mg PO DAILY 01/02/17 [History] Metoprolol XL (24 HR) Succ [Toprol Xl] 25 mg PO DAILY 01/15/17 [History] Bumetanide [Bumex] 2 mg PO DAILY #60 tablet 01/17/17 [Rx] Cholecalciferol (D-3) [Vitamin D] 1,000 unit PO DAILY tablet 01/17/17 [Rx] Digoxin [Lanoxin] 0.125 mg PO DAILY #30 tablet 01/17/17 [Rx] Isosorbide MONOnitrate (24 HR) [Imdur] 30 mg PO DAILY #30 tab.er.24h 01/17/17 [ Rx] Levothyroxine [Synthroid] 50 mcg PO DAILY #0 01/17/17 [Rx] Magnesium Oxide [Mag-Ox] 400 mg PO DAILY #7 tablet 01/17/17 [Rx] Allergies/Adverse Reactions: Allergies No Known Allergies Allergy (Verified 01/02/17 08:41) Certification: Further, I certify that my clinical findings support that this patient is homebound (i.e. absences from home require considerable and taxing effort and are for medical reasons or congregational services or infrequently or short duration when for other reasons) because: Homebound Reason: Leaving home requires considerable and taxing effort due to condition (CHF, deconditioning) Attestation: My signature below is to certify that this patient is under my care and that I, or nurse practitioner, or a physician's assistant real estate manager working with me, has a face-to -face encounter with this patient.
[2017-01-17] MEDS ORDERED: FLU VACC QS2016-17 36MOS UP/PF 0.5 ML SYRINGE IM ONE (12:38)
== END 2017-01-17 14:40 | disposition home health service (06) | DRG 949 ==
LOC: INPPIK 16:00
PROVIDERS: ADMIT Internal Medicine; ATTEND Internal Medicine